=== PATIENT | male | born 1955 | race Caucasian/White ===

== ENCOUNTER 2017-01-03 17:20 | Emergency (ER) | payer BC ==
[2017-01-03] MEDS ORDERED: ENOXAPARIN SODIUM 100 MG/ML SYR SUBCUT ONE ×2 (17:56)
--- NOTE | 2017-01-03 18:01 | ER PHYSICIAN DOCUMENTATION ---
Physician Documentation [facility] Name:Austin Quiroz Age:61 yrs Sex:Male :1955 Arrival Date:01/03/2017 Time:17:20 Bed4 Private MD: Bob Rossi Disposition: 01/03/17 17:43 Discharged to Home/Self Care. Impression: Superficial Thrombophlebitis. - Condition is Good. - Discharge Instructions: THROMBOPHLEBITIS, Superficial. - Medical Reconciliation form form. - Follow up: Bob Gill MD; When: Tomorrow; Reason: Continuance of care. - Problem is new. - Symptoms are unchanged. HPI: 01/03 17:47 This 61 yrs old Male presents to ER via Private Vehicle with complaints of sc Leg Pain - LEFT. 17:47 The patient presents with tenderness. The complaints affect the medial aspect of left sc calf. Context: The problem was sustained at home, resulted from an unknown cause, the patient can fully bear weight, the patient is able to ambulate. Onset: The symptom(s)/episode began/occurred today. Associated signs and symptoms: The patient has no apparent associated signs or symptoms. Severity of symptoms: At their worst the symptoms were mild, in the emergency department the symptoms are unchanged. recent drive from [place], h/o PEs x 2. Historical: - Allergies: No known drug Allergies; - Home Meds: 1. losartan 100 mg oral tab 1 tab once daily 2. Toprol XL 25 mg oral Tb24 1 tab once daily 3. aspirin 81 mg oral tab 1 tab once daily 4. Lipitor Oral - PMHx: Prostate CA; Factor V Leiden; - PSHx: Prostatectomy; - Ebola Screening: : Patient negative for fever greater than or equal to 101.5 degrees Fahrenheit, and additional compatible Ebola Virus Disease symptoms. Patient denies exposure to infectious person. Patient denies travel to an Ebola-affected area in the 21 days before illness onset. No symptoms or risks identified at this time. . - Immunization history: Pneumococcal vaccine is up to date, Flu Vaccine < 1 year. - Social history: Smoking status: Patient states was never smoker of tobacco. Patient/guardian denies using alcohol, street drugs, IV drugs, marijuana. ROS: 17:57 Constitutional: Negative for fever, chills, and weight loss. sc Eyes: Negative for injury, pain, redness, and discharge. Neck: Negative for injury, pain, and swelling. Back: Negative for injury and pain. Skin: Negative for injury, rash, and discoloration. 17:57 Neuro: Negative for headache, weakness, numbness, tingling, and seizure. ok 17:57 MS/extremity: Positive for erythema, tenderness. Exam: Constitutional: This is a well developed, well nourished patient who is awake, alert, and in no acute distress. Head/Face: Normocephalic, atraumatic. 17:57 Eyes: Pupils equal round and reactive to light, extra-ocular motions intact. Lids and sc lashes normal. Conjunctiva and sclera are non-icteric and not injected. Cornea within normal limits. Periorbital areas with no swelling, redness, or edema. 17:57 Musculoskeletal/extremity: Extremities: grossly normal except: erythema, tenderness, ROM: intact in all extremities, Circulation is intact in all extremities. Sensation intact. DVT Exam: no swelling, negative Homans' sign noted on exam, no appreciated bluish discoloration, increased warmth. Vital Signs: 17:36 BP 168 / 87; Pulse 68; Resp 68; Temp 98.5; Pulse Ox 92% on R/A; ok1 MDM: 17:28 Patient medically screened. ok 17:58 Differential diagnosis: high concern for dvt, signif history s/p radical prostatectomy, ok will use lovenox prophylactic. Data reviewed: vital signs, nurses notes. Data reviewed: and as a result, I will discharge patient, order radiologic studie(s), venous doppler. Counseling: I had a detailed discussion with the patient and/or guardian regarding: the historical points, exam findings, and any diagnostic results supporting the discharge/admit diagnosis. Dispensed Medications: 17:54 Drug: Lovenox 100 mg; Route: Sub-Q; Site: right lower abdomen; [facility] 17:57 Follow up: Response: No adverse reaction [facility] 17:57 Drug: Lovenox 100 mg; {Note: dispensed #1 .} Route: Sub-Q; Site: left upper abdomen; [facility] 17:58 Follow up: Response: Dispensed at discharge. [facility] Signatures: Debbie Alberto RN RN ok1 Chew, Bob, MD MD sc
--- NOTE | 2017-01-03 18:01 | ER NURSING DOCUMENTATION ---
Nurse's Notes [facility] Name:Austin Quiroz Age:61 yrs Sex:Male :1955 Arrival Date:01/03/2017 Time:17:20 Bed4 Private MD: Diagnosis:Superficial Thrombophlebitis Presentation: 01/03 17:24 Acuity: SHARON 3 rh 17:32 Presenting complaint: Patient states: reddened area on the lateral aspect of left lower sc1 leg since yesterday. Transition of care: patient was not received from another setting of care. Notified ED Physician of patient's arrival and CC Dr. Gill notified. 17:32 Method Of Arrival: Private Vehicle vt1 Triage Assessment: 17:36 General: Appears in no apparent distress, well developed, well nourished, well groomed, sc1 Behavior is cooperative, pleasant. Pain: Complains of pain in medial aspect of left lower leg. Historical: - Allergies: No known drug Allergies; - Home Meds: 1. losartan 100 mg oral tab 1 tab once daily 2. Toprol XL 25 mg oral Tb24 1 tab once daily 3. aspirin 81 mg oral tab 1 tab once daily 4. Lipitor Oral - PMHx: Prostate CA; Factor V Leiden; - PSHx: Prostatectomy; - Ebola Screening: : Patient negative for fever greater than or equal to 101.5 degrees Fahrenheit, and additional compatible Ebola Virus Disease symptoms. Patient denies exposure to infectious person. Patient denies travel to an Ebola-affected area in the 21 days before illness onset. No symptoms or risks identified at this time. . - Immunization history: Pneumococcal vaccine is up to date, Flu Vaccine < 1 year. - Social history: Smoking status: Patient states was never smoker of tobacco. Patient/guardian denies using alcohol, street drugs, IV drugs, marijuana. Screenin:37 Infectious Disease Risk None. Abuse screen: Denies threats or abuse. Nutritional sc1 screening: No deficits noted. Vital Signs: 17:36 BP 168 / 87; Pulse 68; Resp 68; Temp 98.5; Pulse Ox 92% on R/A; sc1 ED Course: 17:22 Patient arrived in ED. ama 17:24 Triage completed. rh 17:28 Bob Gill MD is Attending Physician. vt 17:32 Alberto, Debbie, RN is Primary Nurse. sc1 17:37 Notified ED Physician of patient's arrival and chief complaint. Dr. Gill notified. Arm sc1 band placed on Bed in low position Call Light in Reach HOB Elevated. 17:42 Bob Gill MD is Referral Physician. sc Administered Medications: 17:54 Drug: Lovenox 100 mg; Route: Sub-Q; Site: right lower abdomen; vt1 17:57 Follow up: Response: No adverse reaction [place] 17:57 Drug: Lovenox 100 mg; {Note: dispensed #1 .} Route: Sub-Q; Site: left upper abdomen; vt1 17:58 Follow up: Response: Dispensed at discharge. [place] Outcome: 17:43 Discharge ordered by MD. vt 17:59 Discharged to home ambulatory. [place] 17:59 Condition: stable 17:59 Discharge instructions given to patient, Instructed on discharge instructions, follow up and referral plans. medication usage, Demonstrated understanding of instructions, medications. 18:00 Patient left the ED. [place] 06/09 08:57 Discharge F/U Call: Spoke with: patient. other: Name: pt here for his US report given st to Dr. Gill. Dr. Gill spoke with the pt. Signatures: Ayla Dunaway RN RN st Campbell, Sandy, RN RN [place] Bob Gill MD MD sc Averdick, Andrew, Mirian Nash
== END 2017-01-03 18:01 | disposition home or self-care (01) ==
LOC: ER 17:20
DX: I80.02 Phlebitis and thrombophlebitis of superficial vessels of left lower extremity (principal); Z86.711 Personal history of pulmonary embolism; D68.2 Hereditary deficiency of other clotting factors; Z85.46 Personal history of malignant neoplasm of prostate; Z90.79 Acquired absence of other genital organ(s); Z79.82 Long term (current) use of aspirin; Z79.899 Other long term (current) drug therapy
CPT/HCPCS: 96372; 99283; J1650